=== PATIENT | female | born 2000 | race Asian ===

== ENCOUNTER 2020-08-01 19:00 | Emergency (ER) | payer BC, SELFPAY ==
--- NOTE | ~2020-08-01 | XR_ITS ---
EXAMINATION: CHEST RADIOGRAPH, RIGHT SHOULDER CLINICAL INFORMATION: Deformity of clavicle after fall COMPARISON: None TECHNIQUE: Single view chest, 4 views right shoulder FINDINGS: There is a mildly comminuted fracture involving the mid clavicle. The inferior fragment is displaced caudad and is proximal fragment is angled superiorly. The shoulder joint itself along with the AC joint appear normal. Single view of the chest, aside from the clavicular fracture shows no abnormality. The heart, lungs and mediastinum appear normal. XR/XR chest 1V IMPRESSION: Fracture right clavicle. Otherwise normal chest.
--- NOTE | ~2020-08-01 | XR_ITS ---
EXAMINATION: CHEST RADIOGRAPH, RIGHT SHOULDER CLINICAL INFORMATION: Deformity of clavicle after fall COMPARISON: None TECHNIQUE: Single view chest, 4 views right shoulder FINDINGS: There is a mildly comminuted fracture involving the mid clavicle. The inferior fragment is displaced caudad and is proximal fragment is angled superiorly. The shoulder joint itself along with the AC joint appear normal. Single view of the chest, aside from the clavicular fracture shows no abnormality. The heart, lungs and mediastinum appear normal. XR/XR shoulder RT min 2V IMPRESSION: Fracture right clavicle. Otherwise normal chest.
[2020-08-01 19:13] VITALS: BP 122/84; BP 136/80; PULSE 100; PULSE 86; RESP 14; TEMP 37; O2SAT 99; BMI 31.4
--- NOTE | 2020-08-01 19:26 | ED_ITS ---
HPI - Fall General Chief Complaint: Fall Stated Complaint: fall Time Seen by Provider: 08/01/20 19:17 Source: patient and EMS Mode of arrival: EMS Limitations: no limitations History of Present Illness HPI Narrative: Helmeted horseback rider thrown over the head of the horse in to stand. Did strike head but was helmeted and there was no loss of consciousness. Landed on right shoulder and now has pain to that area. Denies neck pain, back pain, chest pain, abdominal pain, vomiting, diarrhea, vision changes, headache. MD complaint: fall Related Data Previous Rx's Medication Instructions Recorded ibuprofen 800 mg PO Q8H PRN #20 tab 08/01/20 Allergies Allergy/AdvReac Type Severity Reaction Status Date / Time No Known Allergies Allergy Verified 08/01/20 19:19 Review of Systems Review of Systems: Yes all other systems are reviewed and are negative Constitutional: Constitutional: Reports no additional constitutional complaints, Denies body ache(s), Denies chills, Denies fever(s), Denies headache(s) and Denies weakness Eyes: Eyes: Reports no additional eye complaints and Denies change in vision ENT: Reports system reviewed and no additional complaints, except as documented, Denies dizziness, Denies headache(s), Denies nasal congestion, Denies nasal discharge and Denies neck pain Cardiovascular: Cardiovascular: Reports no additional cardiovascular complaints, Denies chest pain, Denies leg edema and Denies dyspnea Respiratory: Respiratory: Reports no additional respiratory complaints, Denies cough and Denies dyspnea Gastrointestinal: Gastrointestinal: Reports no additional gastrointestinal complaints, Denies abdominal pain, Denies diarrhea, Denies nausea and Denies vomiting Genitourinary: Genitourinary: Reports no additional female genitourinary complaints and Denies urinary incontinence Musculoskeletal: Musculoskeletal: Reports no additional musculoskeletal com plaints, Denies back pain, Reports arthralgias, Reports joint swelling, Reports limited range of motion, Denies neck pain, Denies numbness and Denies tingling Integumentary/Breasts: Skin/Breast: Reports system reviewed and no additional complaints, except as docu and Denies rash Neurologic: Reports system reviewed and no additional complaints, except as documented, Denies Abnormal speech present, Denies dizziness, Denies headache(s), Denies numbness, Denies tingling and Denies weakness PMFSH Past Medical History Attestation statement: The following information was validated with the patient. Source: old records reviewed and nursing notes reviewed Medical History Patient denies significant medical history Social History Social History Advance Directives: No Advance Directives Information Provided: Yes Physical Exam Vital Signs: Vital Signs: Last Vital Signs Temp 98.7 F 08/01/20 20:33 Pulse 87 08/01/20 20:33 Resp 16 08/01/20 20:33 BP 124/85 08/01/20 20:33 Pulse Ox 99 08/01/20 20:33 Body Mass Index 31.4 Const: General: cooperative, healthy appearing, comfortable and no acute distress Orientation/consciousness: patient oriented x3 Limitations: no limitations HENMT: Head: Yes normal to inspection Ears: hearing grossly normal bilaterally General nose exam: Normal external nose present Face and sinus: Yes normal facial exam Mouth: Normal oral and palatal mucosa present Throat: Yes posterior oropharynx normal Eyes: General: appearance normal, both eyes and all related structures Pupils: Equal, round and reactive pupils present Neck: Neck: Yes normal visual inspection Chest: Chest palpation & inspection: normal inspection of the chest Resp: Effort & Inspection: normal respiratory effort Auscultation: clear to auscultation bilaterally Cardio: Rate: regular rate Rhythm: regular rhythm Peripheral pulses: Peripheral pulses 2+ throughout GI: Inspection: Yes normal to inspection Palpation (GI): Soft to palpation and nontender Auscultation: normal bowel sounds Back/Spine/Pelvis: Thoracic/Lumbar Spine: thoracic and lumbar spine normal to inspection Skin: General skin exam: no rashes or lesions noted Neuro: General: patient oriented x3, no focal motor deficits and normal sensation to monofilament Cranial nerves: Yes CN's II-XII intact bilaterally, Yes Equal, round and reactive pupils present, Yes Bilaterally intact EOM present, Yes Nystagmus not present, Yes Normal facial strength present, Yes Midline tongue present and Yes Normal gag reflex present Cognition (Neuro): normal cognition Speech: No Abnormal speech present Gait exam (Neuro): Normal gait present Motor exam (neuro): 5/5 motor strength present throughout Sensory Exam: Normal double simultaneous stimulation for sensation Extrem: Other: Swelling and tenderness over the distal clavicle of the right shoulder. Patient has pain with abduction of the right arm. Neurovascular intact distally General: Yes normal to inspection Course Course Course Narrative: Helmeted horseback rider here with right upper extremity pain and swelling. She did strike her head but she had a helmet on and there was no loss of consciousness. Normal neurological exam. Will need x-rays 2009-x-ray shows right mid shaft clavicle fracture. No tenting of the skin. Discussed with orthopedics Jonathan WAGNER who recommended sling and follow up outpatient in the office with Orthopedics. Reviewed findings with the patient. A sling was placed. Reviewed worrisome signs and symptoms and when to return to the emergency department. Comfortable discharge home. Procedures Orthopedic Splinting/Casting Injury #1: Side: right Upper Extremity Injury Location: clavicle Upper Extremity Immobilizer: sling/shoulder immobilizer MDM - Fall Medical Records Attestation: I reviewed the patient's medical records. Lab Data Attestation: I reviewed the patient's lab results. Imaging Data Chest x-ray: Attestation: I personally reviewed and interpreted this imaging study as follows: Radiologist's impression: cession Number(s): [id number] cc: [employer]~ EXAMINATION: CHEST RADIOGRAPH, RIGHT SHOULDER CLINICAL INFORMATION: Deformity of clavicle after fall COMPARISON: None TECHNIQUE: Single view chest, 4 views right shoulder FINDINGS: There is a mildly comminuted fracture involving the mid clavicle. The inferior fragment is displaced caudad and is proximal fragment is angled superiorly. The shoulder joint itself along with the AC joint appear normal. Single view of the chest, aside from the clavicular fracture shows no abnormality. The heart, lungs and mediastinum appear normal. XR/XR chest 1V IMPRESSION: Fracture right clavicle. Otherwise normal chest. Discharge Plan Discharge Clinical Impression: Clavicle fracture Qualifiers: Encounter type: initial encounter Clavicle location: shaft Fracture type: closed Fracture alignment: displaced Laterality: right Qualified Code(s): S42.021A - Displaced fracture of shaft of right clavicle, initial encounter for closed fracture Patient Disposition: Home, Self-Care Instructions: Clavicle Fracture (ED) Additional Instructions: Ice 20 minutes on and then 20 minutes off. Do not use the arm Sling during the day, off at nighttime The orthopedic team will call you tomorrow to make an appointment. If you do not hear from them by the end of the day call the next morning I have sent a prescription to [facility] on [facility] in [place] for medication for pain Prescriptions: New ibuprofen 800 mg tablet 800 mg PO Q8H PRN (Reason: pain) Qty: 20 RF: 0 Referrals: Marty Melendez MD [Physician] - 2 days Interventions: ED Discharge Assessment Last Done: 08/01/20 20:49 Discharge Date/Time: 08/01/20 20:50
[2020-08-01] MEDS: Ibuprofen 800 MG TABLET PO (20:20)
[2020-08-01 20:33] VITALS: BP 124/85; PULSE 87; RESP 16; TEMP 37.1; O2SAT 99
--- NOTE | 2020-08-01 20:42 | PC.NURSE ---
PT AWAKE AND ALERT, PAIN IN RIGHT UPPER SHOULDER CAUSED BY INJURY AND INCREASED WITH MOVEMENT. WARM SKIN AND RADIAL PULSE IN RIGHT WRIST. RIGHT ARM PLACED IN SLING. ABLE TO FLEX WRIST AND MOVE FINGERS, GOOD COLOR AND TEMPERATURE.
== END 2020-08-01 20:50 | disposition home or self-care (01) ==
PROVIDERS: Emergency Provider Internal Medicine
DX: S42.021A Displaced fracture of shaft of right clavicle, initial encounter for closed fracture (principal); V80.010A Animal-rider injured by fall from or being thrown from horse in noncollision accident, initial encounter; Y93.52 Activity, horseback riding; Y92.39 Other specified sports and athletic area as the place of occurrence of the external cause; Y99.9 Unspecified external cause status
CPT/HCPCS: 71045; 73030; 99283

== ENCOUNTER → 2020-08-04 09:01 | Outpatient (BNVA) | payer BC, SELFPAY | PROVIDERS: Visit Provider Physician Assistant ==

== ENCOUNTER 2020-08-10 10:33 | Day surgery (SDC) | payer BC, SELFPAY ==
--- NOTE | 2020-08-09 09:27 | HO.ANESPROP2 ---
Documented by User: Kim Alice 08/09/20 09:27 HPI - Anesthesia Eval Consult details Narrative: 19yo F for Right Clavicle ORIF [facility] Active Problems Active Problems: All Active Problems (Updated 08/04/20 @ 10:08 by Asya Jacobo PA-C) Right clavicle fracture (Acute) Past Medical History Medical History Patient denies significant medical history Surgical History Surgical History No history of previous surgery Social History Social History Smoking Status: Never smoker Use of substances other than those prescribed or required for medical reasons: No Advance Directives: No Advance Directives Information Provided: No Advance Directives on File: No Current occupational status: student Current occupation: right hand dominant Meds Allergies Allergy/AdvReac Type Severity Reaction Status Date / Time No Known Allergies Allergy Verified 08/09/20 09:03 Exam Exam Date and Time: August 09, 2020 0927 Height,Weight and Vital Signs: Height 551 ft 2.18 in Assessment and Plan Assessment Anesthesia Assessment: Chart Reviewed Documented by User: Herber Patton MD 08/10/20 12:20 [facility] Past Medical History Medical History Patient denies significant medical history Surgical History Surgical History No history of previous surgery Social History Social History Smoking Status: Never smoker Use of substances other than those prescribed or required for medical reasons: No Advance Directives: No Advance Directives Information Provided: No Advance Directives on File: No Current occupational status: student Current occupation: right hand dominant Meds Allergies Allergy/AdvReac Type Severity Reaction Status Date / Time No Known Allergies Allergy Verified 08/09/20 09:03 Exam Airway Mallampati Class: II TM Dist: >3cm Neck ROM: Full Loose/Missing/Broken Teeth: No Heart: RRR Lungs: NL Assessment and Plan Assessment Anesthesia Assessment: Anesthesia Plan Discussed and Chart Reviewed Final Anesthetic Review NPO: Yes ASA Class: I Final Preanesthetic Review: No Changes in Pt Med Stat, Meds/Allgs Chart Reviewed, Consent Obtained/Reviewed and Anes Risks/Benef Reviewed Patient Risk: Low Procedure Risk: Intermediate Anesthetic Plan Anesthetic Plan: GA Disposition: Standard PACU
[2020-08-10] VITALS (10 sets, daily range): BP systolic 124–145; BP diastolic 66–81; PULSE 87–120; RESP 16–20; TEMP 36.8–37.5; O2SAT 95–100; BMI 30.3
--- NOTE | ~2020-08-10 | FL_ITS ---
EXAMINATION: XR FLUOROSCOPY WITH IMAGES CLINICAL INFORMATION: Right clavicle fracture COMPARISON: 08/01/2020 TECHNIQUE: Fluoroscopy performed by Dr. Marty Melendez. Fluoroscopy time: 0.1 minutes DAP: 0.0488 mGycm2 Images: 2 FINDINGS: There is placement of plate and screw fixation hardware transfixing the right mid clavicular fracture with near-anatomic alignment. FL/FL guidance in OR IMPRESSION: Fluoroscopic guidance for internal fixation of the right clavicular fracture. Please refer to operative report for further information.
[2020-08-10 11:13] LABS: UPreg QC Valid YES; Urine Pregnancy NEGATIVE (NEGATIVE)
[2020-08-10] MEDS: Lactated Ringers 1,000 ML 100 ML IVCONT (11:41)
[2020-08-10] MEDS: ondansetron HCL 4 MG/2 ML VIAL IVPUSH (14:23)
--- NOTE | 2020-08-10 17:39 | PC.NURSE ---
1650 DR. SKINNER AT BEDSIDE TO EVALUATE PATIENT UPDATED PATIENT STATUS IVF APPROXIMATE TOTALS VITAL SIGNS, TOLERATED A FEW SIPS OF APPLE JUICE. Yao ADVISED PATIENT MAY HAVE FULL BLADDER ?NEED STRAIGHT CATH. 1703 BLADDER SCAN [phone] ML NO URGE TO VOID 1710 OOB AMBULATED TO BATHROOM STEADY GAIT NO DIZZINESS OR NAUSEA. VOIDED 300ML YELLOW URINE. RETURNED AMBULATED TO STRETCHER NO DIZZINESS OR NAUSEA. ASSISTED TO DRESS AT BEDSIDE EDUCATED IN USE OF SLING AND PENDULUM/ROM EXERCISES. NO COMPLAINTS OF PAIN.
--- NOTE | 2020-08-11 17:00 | P.BOP_ITS ---
Brief Operative Note Date of Service: 08/10/20 Pre-op diagnosis: right clavicle fracture Post-op diagnosis: same Procedure: ORIF right clavicle Implants: [place] clavicle plate Surgeon: Marty Melendez MD Anesthesia: GETA and local Security System Analyst: Asya Jacobo Estimated blood loss (mL): 20 IV fluids (mL): 600 Pathology: none sent Condition: stable Disposition: PACU
--- NOTE | 2020-08-11 17:02 | P.OP_ITS ---
Operative Note Operative Note Date of Service: 08/10/20 Narrative: Pre-op diagnosis: right clavicle fracture Post-op diagnosis: same Procedure: ORIF right clavicle Implants: [place] clavicle plate Surgeon: Marty Melendez MD Anesthesia: JSA and local [employer] Supervisor: Asya Jacobo Estimated blood loss (mL): 20 IV fluids (mL): 600 Pathology: none sent Condition: stable Disposition: PACU Indications: This is a 19 yo F with a displaced and shortened right clavicle fracture. She was consented to undergo ORIF. Procedure in detail: Patient was brought to the operating room and placed in the beach chair position on the surgical table. She was prepped and draped in standard sterile fashion and a time out was called to identify proper site, proper procedure and IV antibiotics per weight were administered. I began by making a superior incision over the right clavicle. Sharp dissection was taken down through the skin and then blunt dissection with a littler scissors was performed until the fracture ends were identified. The fracture was cleaned of debris and two lobster claw tenaculums were used to reduce the fracture. There were several undersurface comminuted pieces but the superior fracture fragments reduced nicely. I then selected a 7 hole plate and placed this over the superior clavicle. Standard AO technique was used to place three screws on either side of the fracture and one lag screw through the plate. A combination of locking and non locking screws were used. Biplanar fluoroscopy was used to confirm the reduction and fixation. Once I was satisfied with the plate position, screw length and fracture reduction, all instrumentation was removed and the wound was irrigated and closed with absorbable subcuticular suture and a running 4.0 prolene. Patient was ten placed in sterile dressing and a sling, extubated and brought to the recovery room in stable condition. Approximately 40 ml of 1/4 % marcaine with epinephrine was used at closure. There were no known complications.
== END 2020-08-10 17:51 | disposition home or self-care (01) ==
PROVIDERS: Nurse Practitioner; Visit Provider Orthopaedic Surgery
PROC: (CPT 23515; principal; 2020-08-10 12:30)
DX: S42.011A Anterior displaced fracture of sternal end of right clavicle, initial encounter for closed fracture (principal); V80.010A Animal-rider injured by fall from or being thrown from horse in noncollision accident, initial encounter; Y93.52 Activity, horseback riding; Y92.9 Unspecified place or not applicable; Y99.8 Other external cause status
CPT/HCPCS: 23515; 81025; C1713; J0690; J1100; J1170; J2250; J2405; J3010

== ENCOUNTER → 2020-08-19 09:06 | Outpatient (BNVA) | payer BC, SELFPAY | PROVIDERS: Visit Provider Physician Assistant ==

== ENCOUNTER 2020-09-16 08:53 | Outpatient (REF) | payer BC, SELFPAY ==
--- NOTE | ~2020-09-16 | XR_ITS ---
EXAMINATION: XR CLAVICLE, RIGHT CLINICAL INFORMATION: Fracture right clavicle status post ORIF. COMPARISON: 08/01/20. 08/10/20. TECHNIQUE: Two views of the right clavicle. FINDINGS: A sideplate and multiple screws remain in stable position across the fracture of the right clavicle. Anatomic alignment is maintained and unchanged from the intraoperative examination of 08/10. There is no visible callus. No hardware complication is demonstrated. XR/XR clavicle RT IMPRESSION: Right clavicular fracture in stable anatomic alignment status post ORIF.
== END 2020-09-16 08:54 | disposition home or self-care (01) ==
LOC: HO.HOSX 08:53
PROVIDERS: Visit Provider Orthopaedic Surgery
DX: S42.001D Fracture of unspecified part of right clavicle, subsequent encounter for fracture with routine healing (principal)
CPT/HCPCS: 73000

== ENCOUNTER 2021-07-09 21:16 | Emergency (ER) | payer BC, SELFPAY ==
[2021-07-09 21:21] VITALS: BP 137/83; PULSE 76; RESP 16; TEMP 36.4; O2SAT 99; BMI 30.2
--- NOTE | 2021-07-09 23:42 | ED_ITS ---
HPI - Headache General Chief Complaint: Headache Stated Complaint: migraine, vomiting Time Seen by Provider: 07/09/21 21:50 Source: patient Mode of arrival: ambulatory Limitations: no limitations History of Present Illness HPI Narrative: Patient with the history of migraine in the past been having headache for last 3 days localized to left side of the head associated with slight nausea and dizziness no vomiting feel dull pain on the left side no fever no chills Related Data Previous Rx's Medication Instructions Recorded oxycodone-acetaminophen 5 mg-325 1 tab PO Q6H PRN 7 Days #28 tab 08/10/ mg tablet (Percocet) llhmjpknke-ekpkfubpxcdfg-lfhnsgjq 1 cap PO Q6H PRN #20 cap 07/10/21 50 mg-300 mg-40 mg capsule (Fioricet) sumatriptan succinate 50 mg tablet 50 mg PO Q2H PRN #10 tab 07/10/21 (Imitrex) Allergies Allergy/AdvReac Type Severity Reaction Status Date / Time No Known Allergies Allergy Verified 07/09/21 21:21 Review of Systems Review of Systems: Yes all other systems are reviewed and are negative [facility] Past Medical History Medical History Clavicle fracture Migraines Patient denies significant medical history Surgical History No history of previous surgery Social History Social History Advance Directives: No Advance Directives Information Provided: Yes Current occupational status: student Current occupation: right hand dominant Physical Exam Vital Signs: Vital Signs: Last Vital Signs Temp 98.0 F 07/09/21 23:43 Pulse 82 07/09/21 23:43 Resp 14 07/09/21 23:43 BP 135/89 07/09/21 23:43 Pulse Ox 97 07/09/21 23:43 BMI result Body Mass Index 30.2 Appearance: Alert. Oriented X3. No acute distress. Eyes: PERRLA, No Nystagmus ENT: Pharynx normal. Oral Mucosa moist temporal artery nontender Neck: Normal inspection. Neck supple. CVS: Normal heart rate and rhythm. Pulses normal. Respiratory: No respiratory distress. Equal air entry bilateral, Abdomen: Soft and nontender. Bowel sounds are present, Skin: Skin warm and dry. Normal skin color. Normal skin turgor. Extremities: No lower extremity edema. No calf tenderness Neuro: Oriented X 3. No motor deficit. No sensory deficit.No cerebellar signs , cranial nerves II-XII intact MDM - Headache MDM Narrative Medical decision making narrative: Patient feeling much better after Imitrex will discharge patient home Lab Data Labs: Lab Results 07/10/21 Range/Units 00:29 Urine Test NEGATIVE (NEGATIVE) Discharge Plan Discharge Clinical Impression: Migraine Patient Disposition: Home, Self-Care Instructions: Migraine Headache (ED) Additional Instructions: Rest at home Take Imitrex 1 tablet at onset of headache may repeat in 2 hours if headache continues cannot take more than 2 tablets in 24 hours Fioricet 1 tablet every 6 hours as needed for continued headache Prescriptions: New yvooyvdxlx-hdurhvpmvcatb-ooof [Fioricet] 50-300-40 mg capsule 1 cap PO Q6H PRN (Reason: headache) Qty: 20 0RF sumatriptan succinate [Imitrex] 50 mg tablet 50 mg PO Q2H PRN (Reason: migraine headache) Qty: 10 0RF Rx Instructions: do not exceed 2 doses per 24 hrs No Action oxycodone-acetaminophen [Percocet] 5-325 mg tablet 1 tab PO Q6H PRN (Reason: pain) 7 Days Qty: 28 0RF Interventions: ED Discharge Assessment Last Done: 07/10/21 01:06 Discharge Date/Time: 07/10/21 01:07
[2021-07-09 23:43] VITALS: BP 135/89; PULSE 82; RESP 14; TEMP 36.7; O2SAT 97
[2021-07-10] MEDS: SUMAtriptan succinate 6 MG/0.5 ML VIAL SUBCUT (00:40)
[2021-07-10 00:43] LABS: UPreg QC Valid YES; Urine Pregnancy NEGATIVE (NEGATIVE)
== END 2021-07-10 01:07 | disposition home or self-care (01) ==
PROVIDERS: Emergency Medicine; Emergency Provider Internal Medicine
DX: G43.909 Migraine, unspecified, not intractable, without status migrainosus (principal); Z79.899 Other long term (current) drug therapy
CPT/HCPCS: 81025; 96372; 99283; 99284; J3030

== ENCOUNTER 2021-09-03 06:45 | Emergency (ER) | payer BC, SELFPAY ==
--- NOTE | ~2021-09-03 | CT_ITS ---
EXAMINATION: CT HEAD WITHOUT CONTRAST CLINICAL INFORMATION: Headache COMPARISON: None TECHNIQUE: Contiguous axial imaging was performed from the skull base to vertex without intravenous administration of contrast. This CT examination was performed using dose optimization techniques as appropriate, variously including the following: *Automated exposure control *Adjustment of mA and/or kV according to patient size (this includes techniques or standardized protocols for targeted exams where dose is matched to indication/reason for exam; i.e. extremities or head) *Use of iterative reconstruction technique DLP: 738 mGy-cm FINDINGS: There is no evidence of acute intracranial hemorrhage or territorial infarction. No abnormal mass effect or midline shift is seen. Mcmahon to white matter differentiation is well preserved. No extra-axial fluid collections are identified. The ventricles are normal in size. There is no abnormal attenuation within the brain parenchyma. The osseous structures and soft tissues are normal. The mastoid air cells and visualized portions of the paranasal sinuses are well aerated. CT/CT head/brain wo con IMPRESSION: Unremarkable exam.
[2021-09-03 06:56] VITALS: BP 145/97; PULSE 81; RESP 18; O2SAT 98
[2021-09-03 07:02] VITALS: BP 152/106; PULSE 81; RESP 16; TEMP 37.1; O2SAT 100; BMI 30.4
--- NOTE | 2021-09-03 07:27 | ED_ITS ---
HPI - Headache General Chief Complaint: Headache Stated Complaint: Migraine Time Seen by Provider: 09/03/21 07:17 Source: patient Mode of arrival: ambulatory Limitations: no limitations History of Present Illness HPI Narrative: This is a 20 years old female presented to the emergency department with a chief complaint of a headache. She carry a diagnosis of migraines, she has been evaluated in this emergency department because of headache in the past. He never had any imaging of the brain inform our evaluation on her migraines MD elicited complaint: headache Pertinent past history: migraines Onset (ago): day(s) (1) Onset description: gradually Location: diffuse Severity: moderate Quality & Timing: aching Exacerbating factors: none Relieving factors: nothing Context: occurred at rest Associated symptoms: nausea and vomiting Related Data Previous Rx's Medication Instructions Recorded oxycodone-acetaminophen 5 mg-325 1 tab PO Q6H PRN 7 Days #28 tab 08/10/21 mg tablet (Percocet) tayyvbpypu-ihmrzsrnbijlu-bdcaprhr 1 cap PO Q6H PRN #20 cap 07/10/21 50 mg-300 mg-40 mg capsule (Fioricet) sumatriptan succinate 50 mg tablet 50 mg PO Q2H PRN #10 tab 07/10/21 (Imitrex) ondansetron 4 mg disintegrating 4 mg PO Q8H 5 Days #15 tab 09/03/21 tablet Allergies Allergy/AdvReac Type Severity Reaction Status Date / Time No Known Allergies Allergy Verified 09/03/21 06:53 Review of Systems Review of Systems: Yes all other systems are reviewed and are negative Constitutional: Constitutional: Reports no additional constitutional complaints ENT: Reports system reviewed and no additional complaints, except as documented Cardiovascular: Cardiovascular: Reports no additional cardiovascular complaints PMFSH Past Medical History Medical History Clavicle fracture Migraines Patient denies significant medical history Surgical History No history of previous surgery Social History Social History Smoked in Last 30 Days: No Use of substances other than those prescribed or required for medical reasons: No Advance Directives: No Advance Directives Information Provided: No Patient : No Current occupational status: student Current occupation: right hand dominant Physical Exam Vital Signs: Vital Signs: Last Vital Signs Temp 98.7 F 09/03/21 07:02 Pulse 71 09/03/21 09:07 Resp 16 09/03/21 09:07 BP 114/71 09/03/21 09:07 Pulse Ox 99 09/03/21 09:07 BMI result Body Mass Index 30.4 Const: General: cooperative and no acute distress Orientation/consciousness: oriented to person and patient oriented x3 HEENT: Head: Yes normal to inspection General nose exam: Normal nares present Face and sinus: Yes normal facial exam Mouth: Normal oral and palatal mucosa present Throat: Yes posterior oropharynx normal Eyes: General: appearance normal, both eyes and all related structures Pupils: Equal, round and reactive pupils present Neck: Neck: Yes normal visual inspection and Yes full ROM Chest: Chest palpation & inspection: normal inspection of the chest Resp: Effort & Inspection: normal respiratory effort Auscultation: clear to auscultation bilaterally Cardio: Jugular venous distension: no JVD Rate: regular rate Rhythm: regular rhythm GI: Inspection: Yes normal to inspection Palpation (GI): Soft to palpation, not firm, nontender and no guarding Skin: General skin exam: no rashes or lesions noted Rashes: no rashes Neuro: General: oriented to person and patient oriented x3 Cranial nerves: Yes CN's II-XII intact bilaterally and Yes Equal, round and reactive pupils present Cognition (Neuro): normal cognition Gait exam (Neuro): Normal gait present Motor exam (neuro): 5/5 motor strength present throughout Course Reevaluation(s) Reevaluation #1: I reexamined the patient she is completely asymptomatic at this time, head CT is negative, at this point the patient will be discharged home Time: 09:15 MDM - Headache Lab Data Result diagrams: 09/03/21 07:38 09/03/21 07:38 Labs: Lab Results 09/03/21 09/03/21 09/03/21 Range/Units 07:38 07:38 07:38 WBC 9.5 (4.8-10.8) X10*3/uL RBC 4.10 L (4.20-5.50) X10*6/uL Hgb 11.7 L (12.0-16.0) g/dl Hct 36.4 L (37.0-47.0) % MCV 88.8 (80.0-98.0) fL MCH 28.5 (27.0-33.0) pg MCHC 32.1 (31.0-35.0) g/dl RDW 12.2 (11.0-16.0) % Plt Count 271 (160-400) X10*3/uL MPV 9.7 (9.4-12.3) fL Immature Gran % (Auto) 0.2 (0.0-0.4) % Neut % (Auto) 71.1 (45-73) % Lymph % (Auto) 23.6 (20-40) % Pennington % (Auto) 4.4 (2-11) % Eos % (Auto) 0.5 (0-4) % Baso % (Auto) 0.2 (0-2) % Lymph # (Auto) 2.2 (1.2-4.9) X10*3/uL Pen[place] # (Auto) 0.4 (0.1-1.2) X10*3/uL Eos # (Auto) 0.1 (0.0-0.4) X10*3/uL Baso # (Auto) 0.0 (0.0-0.2) X10*3/uL Abs Immat Gran (auto) 0.02 (0.00-0.03) X10*3/uL Absolute Neuts (auto) 6.7 (2.0-8.3) x10*3/uL Absolute Nucleated RBC 0.000 (0.0-0.012) X10*3/uL Nucleated RBC % (auto) 0.0 (0.0-0.2) /100WBC Sodium 140 (135-145) mmol/L Potassium 3.7 (3.3-5.1) mmol/L Chloride 108 (96-108) mmol/L Carbon Dioxide 25 (22-29) mmol/L Anion Gap 11 L (12-20) BUN 8 L (9-16) mg/dL Creatinine 0.67 (0.5-1.4) mg/dL Estim Creat Clear Calc 147.5 Estimated GFR > 60 Random Glucose 102 (60-115) mg/dL Calcium 9.1 (8.4-10.2) mg/dL Total Bilirubin 0.2 (0.0-1.0) mg/dL Direct Bilirubin < 0.2 (0.0-0.5) mg/dL AST 17 (5-31) U/L ALT 14 (0-31) U/L Alkaline Phosphatase 53 (39-117) U/L Total Protein 7.1 (6.5-8.0) g/dL Albumin 4.2 (3.5-5.0) g/dL Beta HCG, Quant < 2 mIU/mL Imaging Data CT scan - head: Radiologist's impression: None TECHNIQUE: Contiguous axial imaging was performed from the skull base to vertex without intravenous administration of contrast. This CT examination was performed using dose optimization techniques as appropriate, variously including the following: *Automated exposure control *Adjustment of mA and/or kV according to patient size (this includes techniques or standardized protocols for targeted exams where dose is matched to indication/reason for exam; i.e. extremities or head) *Use of iterative reconstruction technique DLP: 738 mGy-cm FINDINGS: There is no evidence of acute intracranial hemorrhage or territorial infarction. No abnormal mass effect or midline shift is seen. Mcmahon to white matter differentiation is well preserved. No extra-axial fluid collections are identified. The ventricles are normal in size. There is no abnormal attenuation within the brain parenchyma. The osseous structures and soft tissues are normal. The mastoid air cells and visualized portions of the paranasal sinuses are well aerated. ? CT/CT head/brain wo con IMPRESSION: Unremarkable exam. Dictated By: Maeve Navarro Discharge Plan Discharge Clinical Impression: Headache, Migraine Patient Disposition: Home, Self-Care Instructions: Acute Headache (DC) Additional Instructions: Return if you worse review of fever any concern Prescriptions: New ondansetron 4 mg tablet,disintegrating 4 mg PO Q8H 5 Days Qty: 15 0RF Continued pqvnchbnmm-dlkbmuagfvhrj-fydb [Fioricet] 50-300-40 mg capsule 1 cap PO Q6H PRN (Reason: headache) Qty: 20 0RF No Action oxycodone-acetaminophen [Percocet] 5-325 mg tablet 1 tab PO Q6H PRN (Reason: pain) 7 Days Qty: 28 0RF sumatriptan succinate [Imitrex] 50 mg tablet 50 mg PO Q2H PRN (Reason: migraine headache) Qty: 10 0RF Rx Instructions: do not exceed 2 doses per 24 hrs Interventions: ED Discharge Assessment Last Done: 09/03/21 09:11 Discharge Date/Time: 09/03/21 09:12
[2021-09-03] MEDS: 0.9 % Sodium Chloride 1,000 ML 999 ML IV (07:38)
[2021-09-03 07:42] LABS: MANUAL DIFF FLAG NO
[2021-09-03 07:43] LABS: Basophils Percent Auto 0.2 % (0-2); Eosinophils Absolute Auto 0.1 X10*3/uL (0.0-0.4); Eosinophils Percent Auto 0.5 % (0-4); Hematocrit 36.4 % (37.0-47.0); Hemoglobin 11.7 g/dl (12.0-16.0); Imm Gran Abs Auto 0.02 X10*3/uL (0.00-0.03); Imm Gran Pct Auto 0.2 % (0.0-0.4); Lymphocytes Absolute Auto 2.2 X10*3/uL (1.2-4.9); Lymphocytes Percent Auto 23.6 % (20-40); Mean Corpuscular HGB Conc 32.1 g/dl (31.0-35.0); Mean Corpuscular Hemoglobin 28.5 pg (27.0-33.0); Mean Corpuscular Volume 88.8 fL (80.0-98.0); Mean Platelet Volume 9.7 fL (9.4-12.3); Monocytes Absolute Auto 0.4 X10*3/uL (0.1-1.2); Monocytes Percent Auto 4.4 % (2-11); Neutrophils Absolute Auto 6.7 x10*3/uL (2.0-8.3); Neutrophils Percent Auto 71.1 % (45-73); Platelet Count 271 X10*3/uL (160-400); Red Cell Distribution Width 12.2 % (11.0-16.0); White Blood Count 9.5 X10*3/uL (4.8-10.8)
[2021-09-03] MEDS: diphenhydrAMINE HCL 50 MG/ML VIAL 25 MG IVPUSH (07:50)
[2021-09-03] MEDS: Metoclopramide HCl 10 MG/2 ML VIAL IVPUSH (07:50)
[2021-09-03 08:13] LABS: HCG Quantitative < 2 mIU/mL
[2021-09-03 08:46] LABS: Alanine Aminotransferase 14 U/L (0-31); Albumin Level 4.2 g/dL (3.5-5.0); Alkaline Phosphatase 53 U/L (39-117); Anion Gap 11 (12-20); Aspartate Amino Transferase 17 U/L (5-31); Bilirubin Direct < 0.2 mg/dL (0.0-0.5); Bilirubin Total 0.2 mg/dL (0.0-1.0); Blood Urea Nitrogen 8 mg/dL (9-16); Calcium 9.1 mg/dL (8.4-10.2); Carbon Dioxide 25 mmol/L (22-29); Chloride 108 mmol/L (96-108); Creatinine Clr Calc Pharmacy 147.5; Estimated Glomerular Filt Rate > 60; Glucose Random 102 mg/dL (60-115); Potassium 3.7 mmol/L (3.3-5.1); Sodium 140 mmol/L (135-145); Total Protein 7.1 g/dL (6.5-8.0)
[2021-09-03 09:07] VITALS: BP 114/71; PULSE 71; RESP 16; O2SAT 99
== END 2021-09-03 09:12 | disposition home or self-care (01) ==
PROVIDERS: Emergency Provider Emergency Medicine
DX: G43.909 Migraine, unspecified, not intractable, without status migrainosus (principal); Z79.899 Other long term (current) drug therapy
CPT/HCPCS: 36415; 70450; 80048; 80076; 84702; 85025; 96361; 96374; 96375; 99284; J1200; J2765

== ENCOUNTER 2021-10-12 08:30 | Outpatient (REF) | payer BC, SELFPAY ==
--- NOTE | ~2021-10-12 | XR_ITS ---
EXAMINATION: XR CLAVICLE, RIGHT CLINICAL INFORMATION: Fracture COMPARISON: Previous x-ray most recent September 2020 TECHNIQUE: 2 of the right clavicle. FINDINGS: There is a plate and screws seen in the right clavicle that appears unchanged. There is an old healed right mid clavicle fracture. The acromioclavicular joint is slightly widened measuring 9 mm. Soft tissues are unremarkable. XR/XR clavicle RT IMPRESSION: ORIF of old healed right clavicle fracture. Widened right acromioclavicular joint.
== END 2021-10-12 08:31 | disposition home or self-care (01) ==
LOC: HO.HOSX 08:30
PROVIDERS: Visit Provider Orthopaedic Surgery
DX: S42.001A Fracture of unspecified part of right clavicle, initial encounter for closed fracture (principal)
CPT/HCPCS: 73000

== ENCOUNTER 2022-05-02 05:51 | Day surgery (SDC) | payer BC, SELFPAY ==
[2022-04-26 15:05] VITALS: BMI 30.3
--- NOTE | 2022-05-01 12:26 | HO.ANESPROP2 ---
Documented by User: Kim Jenkins NP 05/01/22 12:27 HPI - Anesthesia Eval Consult details Narrative: 21yo F for Right Removal Orthopedic Hardware of clavical s/p fx repair 07/2020 with GA PMFSH Active Problems Active Problems: All Active Problems (Updated 04/26/22 @ 14:58 by Cris Hollins RN) Right clavicle fracture (Acute) Fracture of clavicle with routine healing (Acute) Past Medical History Medical History (Updated 04/26/22 @ 14:58 by Cris Hollins RN) Clavicle fracture Migraines Surgical History Surgical History (Updated 04/26/22 @ 14:58 by Cris Hollins RN) History of open reduction and internal fixation (ORIF) procedure Social History Social History Patient Tobacco Use Status: Never used Tobacco Current occupational status: student Current occupation: right hand dominant Meds Allergies Allergy/AdvReac Type Severity Reaction Status Date / Time No Known Allergies Allergy Verified 04/13/22 10:42 Exam Exam Date and Time: May 01, 2022 1226 Height,Weight and Vital Signs: Height 5 ft 6.14 in Weight 85.6 kg Assessment and Plan Assessment Anesthesia Assessment: Chart Reviewed Documented by User: Fransico Gamez MD 05/02/22 17:36 HPI - Anesthesia Eval Consult details Narrative: 21yo F for Right Removal Orthopedic Hardware of clavical Migranes s/p fx repair 07/2020 with GA PMFSH Past Medical History Medical History (Updated 04/26/22 @ 14:58 by Cris Hollins RN) Clavicle fracture Migraines Functional capacity: independent ambulation Family History Family history of problems with anesthesia: No Surgical History Surgical History (Updated 04/26/22 @ 14:58 by Cris Hollins RN) History of open reduction and internal fixation (ORIF) procedure History of Problems with Anesthesia: No Social History Social History Patient Tobacco Use Status: Never used Tobacco Current occupational status: student Current occupation: right hand dominant Meds Allergies Allergy/AdvReac Type Severity Reaction Status Date / Time No Known Allergies Allergy Verified 04/13/22 10:42 Exam Airway Mallampati Class: III TM Dist: >3cm Neck ROM: Full Loose/Missing/Broken Teeth: Yes (Fillings ) Heart: S1,S2 Lungs: b/l breath sounds Assessment and Plan Assessment Anesthesia Assessment: Anesthesia Plan Discussed Final Anesthetic Review Family History of Problems with Anesthesia: No History of Problems with Anesthesia: No NPO: Yes ASA Class: II Final Preanesthetic Review: Meds/Allgs Chart Reviewed, Consent Obtained/Reviewed and Anes Risks/Benef Reviewed Patient Risk: Intermediate Procedure Risk: Intermediate Anesthetic Plan Anesthetic Plan: GA Disposition: Standard PACU
[2022-05-02] VITALS (8 sets, daily range): BP systolic 123–139; BP diastolic 69–87; PULSE 70–98; RESP 16–18; TEMP 36.6–36.9; O2SAT 99–100; BMI 28.1
[2022-05-02 06:15] LABS: UPreg QC Valid YES; Urine Pregnancy NEGATIVE (NEGATIVE)
[2022-05-02] MEDS: Lactated Ringers 1,000 ML 100 ML IVCONT (06:44)
--- NOTE | 2022-05-02 07:38 | MHC.SHP ---
Pre-Procedural Eval Section A Date of Service: 05/02/22 The patient is an INPATIENT: No Changes since office visit: No Cold of Flu in the past 2 weeks, No New Medical Problems, No Changes in Medication and No Patient answered all questions The History & Physical has been completed within 30 days and I have reviewed it.: Yes Section B Chief Complaint: Fracture of unspecified part of unspecified clavic Allergies: Allergies Allergy/AdvReac Type Severity Reaction Status Date / Time No Known Allergies Allergy Verified 04/13/22 10:42 Plan I have reviewed the history and physical and performed a pertinent physical examination on my patient. No changes have occurred unless specified. Time Spent With Patient Time: Total time managing care of this patient today ____ minutes.
--- NOTE | 2022-05-02 08:21 | PM.OP ---
Brief Operative Note Date of Service: 05/02/22 Pre-op diagnosis: Retained orthopaedic hardware right clavicle Post-op diagnosis: same Procedure: Removal of hardware, right clavicle Surgeon: Marty Melendez MD Anesthesia: GETA and local Was an Pay Per Click Strategist used for this Procedure?: Yes Pay Per Click Strategist: Asya Jacobo Estimated blood loss (mL): 20 IV fluids (mL): 500 Pathology: none sent Condition: stable Disposition: PACU
--- NOTE | 2022-05-02 08:23 | W.PM.OPN ---
Operative Note Operative Note Date of Service: 05/02/22 Narrative: Date of Service: 05/02/22 Pre-op diagnosis: Retained orthopaedic hardware right clavicle Post-op diagnosis: same Procedure: Removal of hardware, right clavicle Surgeon: Marty Melendez MD Anesthesia: GETA and local Was an Biophysics Professor used for this Procedure?: Yes Biophysics Professor: Asya Jacobo Estimated blood loss (mL): 20 IV fluids (mL): 500 Pathology: none sent Condition: stable Disposition: PACU Procedure in detail: Patient was brought to the operating room and placed in the beach chair position on the surgical table. She was prepped and draped in standard sterile fashion and a time out was called to identify proper site, proper procedure and IV antibiotics per weight were administered. I began by making an incision along the prior incision. I developed a full thickness flap down to the plate. The 7 screws were then identified and removed using a [employer] screwdriver. These were removed without difficulty. I then ronguered off the excess bone and irrigated copiously. I closed with a running 3.0 Vicryl and a 3.0 Prolene. I injected 30 ml of 1/4% Marcaine. The wound was dressed with sterile dressing and the patient was extubated and brought to the recovery room in stable condition. There were no known complications
[2022-05-02] MEDS: Acetaminophen 325 MG TABLET 650 MG PO (09:36)
== END 2022-05-02 10:17 | disposition home or self-care (01) ==
PROVIDERS: Nurse Practitioner; Visit Provider Orthopaedic Surgery
PROC: (CPT 20680; principal; 2022-05-02 07:30)
DX: Z47.2 Encounter for removal of internal fixation device (principal); S42.001A Fracture of unspecified part of right clavicle, initial encounter for closed fracture; G43.909 Migraine, unspecified, not intractable, without status migrainosus; X58.XXXA Exposure to other specified factors, initial encounter; Y93.9 Activity, unspecified; Y92.9 Unspecified place or not applicable; Y99.8 Other external cause status; Z79.899 Other long term (current) drug therapy
CPT/HCPCS: 20680; 81025; J0690; J1100; J2405; J2795; J3010

== ENCOUNTER 2022-05-17 17:11 | Outpatient (REF) | payer BC, SELFPAY ==
--- NOTE | ~2022-05-17 | XR_ITS ---
EXAMINATION: XR CLAVICLE, RIGHT CLINICAL INFORMATION: 21-year-old female with history of fractured clavicle. COMPARISON: Baseline exam done 08/01/2020. Last x-ray on 10/12/2021. TECHNIQUE: Two views of the right clavicle. FINDINGS: A compression plate with fixation screws have been removed from the right clavicle. The original fracture of the right clavicular shaft shows bony union. XR/XR clavicle RT IMPRESSION: Status post successful removal of fixation hardware. Healed clavicular fracture.
== END 2022-05-17 17:12 | disposition home or self-care (01) ==
LOC: HO.HOSX 17:11
PROVIDERS: Visit Provider Physician Assistant
DX: S42.001D Fracture of unspecified part of right clavicle, subsequent encounter for fracture with routine healing (principal); X58.XXXD Exposure to other specified factors, subsequent encounter; Z98.890 Other specified postprocedural states
CPT/HCPCS: 73000

== ENCOUNTER → 2022-05-31 12:57 | Outpatient (BNVA) | payer BC, SELFPAY | PROVIDERS: Visit Provider Physician Assistant | DX: Z13.89 Encounter for screening for other disorder (principal) ==

== ENCOUNTER 2023-05-20 14:10 | Emergency (ER) | payer OTHER, SELFPAY ==
--- NOTE | ~2023-05-20 | XR_ITS ---
EXAMINATION: XR CHEST CLINICAL INFORMATION: Cough. COMPARISON: 08/01/2020 TECHNIQUE: 2 views of the chest were obtained. FINDINGS: The lungs are well expanded. No focal consolidation. No pleural effusion. Cardiac silhouette is unchanged. XR/XR chest 2V IMPRESSION: No acute abnormality.
[2023-05-20 14:21] VITALS: BP 136/82; PULSE 81; RESP 16; TEMP 36.2; O2SAT 98; BMI 27.8
--- NOTE | 2023-05-20 14:21 | ED_ITS ---
HPI - General Adult General Chief complaint: Upper Respiratory Symptoms Stated complaint: Cough/Sore throat Time Seen by Provider: 05/20/23 15:40 Source: patient, RN notes reviewed and old records reviewed Mode of arrival: ambulatory History of Present Illness HPI narrative: 22-year-old female with a past medical history of migraines presenting to the ED complaining of sore itchy throat, productive cough, myalgias/URI symptoms x few weeks. Denies known fever, ear pain, CP/SOB, recent travel, sick contacts. Related Data Previous Rx's Medication Instructions Recorded zjanhbnzfv-ksfgkaxrtezam-pxccubhs 1 cap PO Q6H PRN headache #20 caps 07/10/21 50 mg-300 mg-40 mg capsule (Fioricet) sumatriptan succinate 50 mg tablet 50 mg PO Q2H PRN migraine headache 07/10/21 (Imitrex) #10 tabs ondansetron 4 mg disintegrating 4 mg PO Q8H 5 days #15 tabs 09/03/21 tablet hydrocodone 5 mg-acetaminophen 325 1 tab PO Q8H PRN pain (scale score 12/22 mg tablet 4-6) 7 days #21 tabs Allergies Allergy/AdvReac Type Severity Reaction Status Date / Time No Known Allergies Allergy Verified 05/31/22 13:00 Review of Systems Review of Systems: Constitutional: No Fever, No Chills ENT/Mouth: No Ear Pain, +Nasal Congestion, No Hoarseness, +sore throat, + Rhinorrhea, No Swallowing Difficulty Cardiovascular: +Chest Pain, No SOB Respiratory: + Cough, + Sputum, No Wheezing Gastrointestinal: No Nausea, No Vomiting, No Abdominal pain Musculoskeletal: No joint pain, + Myalgias, No Joint Swelling Skin: No Skin Lesions, No rash Neuro: No Weakness Yes all other systems are reviewed and are negative Constitutional: Constitutional: Reports as per [facility] Past Medical History Attestation statement: The following information was validated with the patient. Source: old records reviewed Onset Date is defined in the Problem List Problems that require an onset date and time if occurred within 24 hrs of arrival to the ED Aortic Dissection and Rupture; Neurologic impairment; Cardiopulmonary Arrest; Endotracheal Intubation; Insertion or Replacement of Mechanical Circulatory Assist Device Medical History Migraines Clavicle fracture Surgical History History of open reduction and internal fixation (ORIF) procedure Social History Social History Patient Tobacco Use Status: Never used Tobacco Advance Directives: No Advance Directives Information Provided: No Current occupational status: student Current occupation: right hand dominant Physical Exam ED Vital Signs: Vital Signs - 24 hr 05/20/23 14:21 05/20/23 15:39 Temperature 97.2 F 97.9 F Pulse Rate 81 80 Respiratory Rate 16 20 Blood Pressure 136/82 134/78 Pulse Oximetry 98 98 Oxygen Delivery Method Room Air Room Air BMI result Body Mass Index 27.8 Const General: cooperative, healthy appearing and no acute distress Orientation/consciousness: patient oriented x3 Limitations: no limitations HENMT Head: Yes normal to inspection and Yes atraumatic Ears: hearing grossly normal bilaterally General nose exam: Normal external nose present Face and sinus: Yes normal facial exam Mouth: Normal oral and palatal mucosa present Throat: Yes posterior oropharynx normal, Yes tonsils normal, Yes uvula midline, No peritonsillar mass and No uvula laterally displaced Eyes General: appearance normal, both eyes and all related structures EOM: EOMs intact bilaterally Neck Neck: Yes normal visual inspection and Yes no meningeal signs Resp Effort & Inspection: normal respiratory effort, no respiratory distress and no stridor Auscultation: clear to auscultation bilaterally, no crackles and no wheezes Cardio Rate: regular rate Heart sounds: S1 normal heart sound present and S2 normal heart sound present Skin Rashes: no rashes Wounds: no wounds Neuro General: patient oriented x3, tone normal and no meningeal signs Cranial nerves: Yes CN's II-XII intact bilaterally Gait exam (Neuro): Normal gait present Extrem General: Yes normal to inspection Course Course Course Narrative: RME performed by Belen Alcantar PA-C. Patient is a 22 year old assigned female at presenting to the emergency department with a cough and sore throat. Detailed physical exam and review of systems are deferred to the rn primary care. Swabs ordered. Patient placed back in the waiting room pending room availability and results. -CXR unremarkable -COVID-19 positive Results discussed with patient including worrisome signs and symptoms and strict return precautions, and when to return to the emergency department. They verbalized understanding and feel safe for discharge at this time. Medical Decision Making Medical Decision Making [facility] Narrative: 22-year-old female with a past medical history of migraines presenting to the ED complaining of sore itchy throat, productive cough, myalgias/URI symptoms x few weeks. On exam vital signs stable, NAD, nontoxic appearing, lungs CTA, oropharynx WNL, no tonsillar exudates, uvula midline, talking in complete sentences. Concern for viral illness versus pharyngitis. Rule out pneumonia/bronchitis. Low suspicion for ACS/PE. No evidence of [employer] or retropharyngeal abscess Plan: Viral testing, CXR Please refer to course for remaining clinical decision making, interpretation of labs/imaging results, and discussions with consultants and/or family members. Differential Diagnosis Differential Diagnoses: The differential diagnosis associated with the presentation includes As above Lab Data [facility] Lab Attestation statement: I reviewed the patient's lab results. Labs: Lab Results 05/20/23 Range/Units 14:42 Influenza Type A (PCR) NEGATIVE (Negative) Influenza Type B (PCR) NEGATIVE (Negative) RSV RNA Qual (PCR) NEGATIVE (Negative) SARS-CoV-2 RNA (RT-PCR) POSITIVE A (Negative) S. pyogenes GrpA GIOVANNA Negative (Negative) Independent Interpretation I performed an independent interpretation of an: Plain X-Ray (Unremarkable) Radiology Impression Discussion of test interpretation with radiology: I have reviewed the radiologist's reading. Independent Historian Clinical information obtained from an independent historian. History obtained from or confirmed by: Parent External Record Review External record reviewed: Inpatient record, Office record, Outpatient record, Prior outpatient labs, Prior outpatient radiology, Primary care record and Outside ED record Tests considered The following testing was considered but not selected: As above Prescription Management I considered prescription management with: Pain Medication, Antiviral and Antibiotic Discharge Plan Discharge Clinical Impression: COVID-19 Patient Disposition: Home, Self-Care Instructions: COVID-19 (Coronavirus Disease 2019) (ED) Additional Instructions: YOU HAVE COVID-19 At this time you will be okay for discharge. Please self isolate for 5 days. Do not expose yourself to others. You may not go to work or school. Please continue to follow cold instructions and wash your hands frequently. You may take Tylenol / Motrin as directed on the bottle for pain or fever. If you have constant or persistent shortness of breath, fever unresolved with medications, chest pain, or your unable to eat or drink please return to the ED CDC Guidelines for home isolation: - Stay away from others - WEAR A MASK if you are sick AND STAY HOME - Cover your mouth and nose with a tissue when you cough or sneeze. Dispose of tissues in a lined trash can and wash your hands immediately with soap and water for at least 20 seconds. If soap and water are not available, clean hands with alcohol-based hand paper folding machine operator that contains at least 60% alcohol. - Clean your hands often with soap and water for at least 20 seconds - Avoid touching your eyes, nose and mouth with unwashed hands - Do not share dishes, drinking glasses, cups, eating utensils, towels, or bedding with other people in your home. After using these items, wash them thoroughly with soap and water or put in the commercial construction estimator. - Clean high-touch surfaces in your isolation area ( sick room and bathroom) every day; let a caregiver clean and disinfect high-touch surfaces in other areas of the home. Clean the area or item with soap and water or another detergent if it is dirty. Then, use a household disinfectant. - Limit contact with pets and animals: If you must care for a pet, wash your hands before and after interacting with them) Prescriptions: No Action jhsymqkjzi-zggqkqlaggonn-pgjp [Fioricet] 50-300-40 mg capsule 1 cap PO Q6H PRN (Reason: headache) Qty: 20 0RF sumatriptan succinate [Imitrex] 50 mg tablet 50 mg PO Q2H PRN (Reason: migraine headache) Qty: 10 0RF Rx Instructions: do not exceed 2 doses per 24 hrs ondansetron 4 mg tablet,disintegrating 4 mg PO Q8H 5 Days Qty: 15 0RF hydrocodone-acetaminophen 5-325 mg tablet 1 tab PO Q8H PRN (Reason: pain (scale score 4-6)) 7 Days Qty: 21 0RF Rx Instructions: Partial Fill upon patient request. Referrals: Physician,None [Primary Care Provider] - 5 days Interventions: ED Discharge Assessment Last Done: 05/20/23 16:34 Discharge Date/Time: 05/20/23 16:35
[2023-05-20 15:39] VITALS: BP 134/78; PULSE 80; RESP 20; TEMP 36.6; O2SAT 98
== END 2023-05-20 16:35 | disposition home or self-care (01) ==
PROVIDERS: Emergency Provider Emergency Medicine
DX: U07.1 COVID-19 (principal); R05.9 Cough, unspecified; J02.9 Acute pharyngitis, unspecified; M79.10 Myalgia, unspecified site
CPT/HCPCS: 0241U; 71046; 87651; 99282; 99283